=== PATIENT | female | born 1975 | race Caucasian/White ===

== ENCOUNTER 2016-11-13 09:03 | Day surgery (SDC) | payer MEDICAID ==
[~2016-11-13 09:03] MED LIST: HYDROmorphone 0.5 mg/0.5 ml ISec IVP PRN; Lactated Ringer's 1,000 ML IV SCH
[2016-11-13] MEDS ORDERED: Lactated Ringer's 1,000 ML IV ONE ×3 (10:44)
[2016-11-13] MEDS ORDERED: Bupivacaine HCl 0.25% PF (10 ml) Inj ONE ×2 (10:56→10:57)
[2016-11-13] MEDS ORDERED: Lidocaine 1% Inj (20ml) ONE (10:57)
[2016-11-13] MEDS ORDERED: Propofol 10 mg/ml Inj (20 ML) ONE (11:24)
[2016-11-13] MEDS ORDERED: Midazolam 2 MG/2 ML VIAL ONE (11:24)
[2016-11-13] MEDS: ceFAZolin IV 1 gm in Dextrose 1 GM/50 ML BAG IVPB ONE ×2 (11:26→11:30)
[2016-11-13] MEDS ORDERED: Oxycodone/Acetaminophen 5/325 mg Tab PO PRN (11:46)
[2016-11-13] MEDS: HYDROmorphone 0.5 mg/0.5 ml ISec IVP PRN ×2 (12:47→13:15)
[2016-11-13 14:50] VITALS: BP 131/70; PULSE 82; RESP 18; TEMP 97; O2SAT 100
--- NOTE | 2016-11-13 19:41 | OP ---
PROCEDURE DATE: 11/13/2016 PREOPERATIVE DIAGNOSIS: Midline neck mass, rule out thyroglossal duct cyst. POSTOPERATIVE DIAGNOSIS: Midline neck mass, rule out thyroglossal duct cyst. PROCEDURE PERFORMED: Wide and deep excision of 4 cm midline neck mass with repair of blood vessel and adjacent tissue transfer closure. SURGEON: Dr. Epps. TYPE OF ANESTHESIA: General. ESTIMATED BLOOD LOSS: 30 mL. POSTOPERATIVE CONDITION: Stable. INDICATIONS FOR SURGERY: This is a 41-year-old female with *------* midline neck mass who now will undergo wide and deep excision. DESCRIPTION OF PROCEDURE: The patient was taken to the operating room. General anesthesia was administered. The neck was extended, prepped and draped. A generous elliptical incision was made surrounding the mass. It was dissected into the fascial layer and completely removed. Bleeding was controlled using the Bovie. Bleeding from the anterior jugular vein was repaired with Prolene. The wound was irrigated with copious amounts of saline solution and generous tissue flaps were raised using the Bovie. Greater than 30 cm adjacent tissue transverse closure was performed using multiple layers of Monocryl, subcuticular Monocryl and glue. The patient tolerated the procedure well and returned to the recovery room in stable condition. Wily Epps MD
== END 2016-11-13 14:54 | disposition home or self-care (01) ==
LOC: C.SDS 09:03
PROVIDERS: ATTEND Surgery
DX: L72.0 Epidermal cyst (principal); L02.11 Cutaneous abscess of neck
CPT/HCPCS: 14301; 21556; 88307; J0690; J1170; J2001; J2250; J2704; J3010; J7120